=== PATIENT | female | born 1980 | race African-American/Black ===

== ENCOUNTER 2016-05-22 18:08 | Emergency (ER) | payer OTHER ==
[2016-05-22 18:30] VITALS: TEMP 98; BMI 26.6
--- NOTE | 2016-05-22 21:00 | PDOC ---
History of Present Illness - General Chief Complaint: Lightheaded Stated Complaint: LIGHTHEADED Time Seen by Provider: 05/22/16 19:12 - History of Present Illness Initial Comments: 05/22/16 20:55 CHIEF COMPLAINT: dizziness, nausea HISTORY OF PRESENT ILLNESS: 36 yo F with unknown PMH presents to ED with dizziness and nausea since this afternoon. Patient states "I am worried because last Thursday I had an episode when I felt dizzy, weak, and nauseous, and suddenly my tongue felt heavy and numb, and I couldn't speak for about 10 minutes while I was on the phone with my friend, but I took a sip of water and then I was fine. Today at work around 4:30 pm I started feeling dizzy and nauseous again so I told myself I would come to the ER after work." PAST MEDICAL HISTORY: "I don't know" FAMILY HISTORY: Denies SOCIAL HISTORY: Former smoker. Denies alcohol, illicit drug use. SURGICAL HISTORY: Denies ALLERGIES: No known drug allergies REVIEW OF SYSTEMS General/Constitutional: "Weak, dizzy." Denies fever or chills. HEENT: Denies change in vision. Denies ear pain or discharge. Denies sore throat. Cardiovascular: Denies chest pain or shortness of breath. Respiratory: Denies cough, wheezing, or hemoptysis. Gastrointestinal: Nausea. Denies vomiting, diarrhea. Genitourinary: Denies dysuria, frequency, or change in urination. Musculoskeletal: Denies joint or muscle swelling or pain. Denies neck or back pain. Skin and breasts: Denies rash or easy bruising. Neurologic: Dizziness, lightheadedness. "I feel like I'm not straight." Denies loss of consciousness, or loss of sensation. PHYSICAL EXAM General Appearance: Well-appearing, appropriately dressed. No apparent distress. HEENT: EOMI, PERRLA, normal ENT inspection, normal voice, TMs normal, pharynx normal. No conjunctival pallor. No photophobia, scleral icterus. Neck: Supple. Trachea midline. No tenderness, rigidity, carotid bruit, stridor , lymphadenopathy, or thyromegaly. Respiratory/Chest: Lungs CTAB. Cardiovascular: RRR. S1, S2. Gastrointestinal/Abdominal: Normal bowel sounds. Abdomen soft, non-distended. No tenderness or rebound tenderness. No organomegaly, pulsatile mass, guarding , hernia, hepatomegaly, splenomegaly. Musculoskeletal/Extremities: Normal inspection. FROM of all extremities, normal capillary refill. Pelvis Stable. No CVA tenderness. No tenderness to extremities, pedal edema, swelling, erythema or deformity. Integumentary: Appropriate color, dry, warm. No cyanosis, erythema, jaundice or rash Neurologic: clinic licensed practical nurse II-XII intact. Fully oriented, alert. Appropriate mood/affect. Motor strength 5/5. No appreciable EOM palsy, facial droop or sensory deficit. A&Ox3, follow commands, respond appropriately CN2-12: conjugate gaze, pupil round, equal and reactive to light. Visual field full to confrontation. EOMI without nystagmus, pursuit is smooth without saccade. Facial sensation and muscle activation intact bilaterally. Hearing intact bilaterally. Palate elevate symmetrically. Shoulder shrug and neck turn full strength. Tongue protrude midline. Motor: UE and LE strength 5/5 throughout bilaterally. Muscle tone and bulk normal. Sensory: pin prick & temp : BUE & BLE intact and equal bilaterally Vibration & propioception: intact bilaterally at 1st MCP and MTP joints. no sensory level noted on trunk Cerebellar: Rapid-alternating movement with regular rhythm without bradykinesia. Tdgfbs-[id number]-voev and rnxe-bf-[id number] intact bilaterally without dysmetria or overshoot. Gait narrow based. No shuffling. Full hip flexion and knee flexion. Negative Romberg No involuntary movement noted. No pronator drift. No clonus. 05/22/16 21:04 05/22/16 22:54 Past History - Past Medical History Allergies/Adverse Reactions: Allergies Allergy/AdvReac Type Severity Reaction Status Date / Time No Known Allergies Allergy Verified 05/22/16 19:07 Home Medications: Ambulatory Orders Nitrofurantoin Monohyd/M-Cryst [Macrobid -] 100 mg PO BID #14 capsule 05/22/16 HIV: Yes Other medical history: DENIES. - Surgical History GI Surgery: Yes (COLOSTOMY) - Psycho/Social/Smoking Cessation Hx Suicidal Ideation: No Smoking History: Current every day smoker Have you smoked in the past 12 months: No Number of Cigarettes Smoked Daily: 10 Information on smoking cessation initiated: No Substance Use Type: Alcohol, Cocaine, Heroin, Marijuana, Opiates *Physical Exam - Vital Signs Last Vital Signs Temp Pulse Resp BP Pulse Ox 98 F 77 19 124/68 100 05/22/16 18:27 05/22/16 18:27 05/22/16 18:27 05/22/16 18:27 05/22/16 18:27 ED Treatment Course - LABORATORY CBC & Chemistry Diagram: 05/22/16 20:58 05/22/16 20:58 - RADIOLOGY Radiology Studies Ordered: Category Date Time Status HEAD CT WITHOUT CONTRAST [CT] Stat CT Scan 05/22/16 20:50 Ordered Medical Decision Making - Medical Decision Making 05/22/16 22:42 36 yo F with unknown PMH presents to ED with dizziness and nausea since this afternoon. -CBC, CMP -Head CT Labs: Hg - 7.6, Hct 25.[address] negative for intracranial pathology. Patient refused blood transfusion. At this time she states that she has been told previously by her VISITOR SERVICES REPRESENTATIVE and "a clinic over at [facility]" that she has anemia sometimes due to heavy bleeding during her periods secondary to her fibroids, and was also told by VISITOR SERVICES REPRESENTATIVE MD Grimes "that I should get iron shots, but iron shots are too expensive, and I asked if I could just take iron pills to bring the levels up. But it's my fault because I haven't been taking the iron pills. I don't want to do the blood transfusion here, I'm all by myself today." Discussed with patient that she must follow up with rn gyn and hematology for further evaluation this week. Patient verbalized understanding and agrees to plan. 05/22/16 22:46 *DC/Admit/Observation/Transfer Diagnosis at time of Disposition: Lightheadedness Urinary tract infection Qualifiers: Urinary tract infection type: site unspecified Hematuria presence: without hematuria Qualified Code(s): N39.0 - Urinary tract infection, site not specified - Discharge Dispostion Disposition: HOME Condition at time of disposition: Stable Admit: No - Prescriptions Prescriptions: Nitrofurantoin Monohyd/M-Cryst [Macrobid -] 100 mg PO BID #14 capsule - Referrals Referrals: Anahi Sears MD [Staff Physician] - Chalino Carlton MD [Staff Physician] - Rosaline Lynn MD [Staff Physician] - - Patient Instructions Printed Discharge Instructions: Anemia, DI for Urinary Tract Infection (UTI) Additional Instructions: Please take antibiotic for urinary tract infection as prescribed. You must follow up with rn gyn and hematology this week for further evaluation of your anemia. Follow up with neurology regarding your inability to speak last week. If you experience any further dizziness, lightheadedness, headache, severe vaginal bleeding (more than one soaked pad an hour), fever, vomiting, diarrhea or any new or worsening symptoms, please return to the ER. - Post Discharge Activity Work/School Note: Back to Work
[2016-05-22 21:13] LABS: BASOPHIL 1.3 % (0-2.0); EOSINOPHIL 2.7 % (0-4.5); MCH 20.6 pg (25.7-33.7); MCHC 30.5 g/dl (32.0-36.0); MEAN CELL VOLUME 67.5 fl (80-96); MEAN PLT VOLUME 7.9 fl (7.5-11.1); NEUTROPHILS 49.4 % (42.8-82.8); PLATELET COUNT 239 K/MM3 (134-434); RDW 16.7 % (11.6-15.6); WHITE BLOOD COUNT 7.7 K/mm3 (4.0-10.0)
[2016-05-22 21:15] LABS: URINE APPEARANCE SLCLOUDY; URINE BILIRUBIN NEGATIVE (NEGATIVE); URINE BLOOD 3+ (NEGATIVE); URINE COLOR YELLOW; URINE GLUCOSE (UA) NEGATIVE (NEGATIVE); URINE KETONE NEGATIVE (NEGATIVE); URINE LEUK ESTERASE 1+ (NEGATIVE); URINE NITRITE POSITIVE (NEGATIVE); URINE PROTEIN NEGATIVE (NEGATIVE); URINE UROBILINOGEN NEGATIVE E.U./dl (0.2-1.0)
[2016-05-22 21:18] LABS: URINE BACTERIA MANY /hpf (NONE SEEN); URINE MUCUS RARE; URINE RBC 1 /hpf (0-3); URINE WBC 6 /hpf (3-5); YEAST MANY
[2016-05-22 21:31] LABS: HYPOCHROMIA 3+; MICROCYTOSIS 1+; OVALOCYTES FEW; PLATELET ESTIMATE ADEQUATE (NORMAL); POIKILOCYTOSIS 1+; POLYCHROMASIA 1+; TEAR DROP CELLS FEW
[2016-05-22 21:40] LABS: ALBUMIN 3.9 g/dl (3.4-5.0); ALK PHOS 72 U/L (45-117); ANION GAP 9 (8-16); BILIRUBIN,TOTAL 0.2 mg/dL (0.2-1.0); CALCIUM 8.7 mg/dL (8.5-10.1); CO2 24 mmol/L (21-32); CREATININE 0.8 mg/dL (0.55-1.02); GLUCOSE,RANDOM 77 mg/dL (74-106); SGOT/AST 12 U/L (15-37); SGPT/ALT 20 U/L (12-78)
--- NOTE | 2016-05-22 21:49 | PDOC ---
[id number]/68 100 05/22/16 18:27 05/22/16 18:27 05/22/16 18:27 05/22/16 18:27 05/22/16 18:27 ED Treatment Course - LABORATORY CBC & Chemistry Diagram: 05/22/16 20:58 05/22/16 20:58 - ADDITIONAL ORDERS Additional order review: Laboratory Results 05/22/16 05/22/16 05/22/16 21:00 21:00 20:58 Sodium 142 Potassium 3.8 Chloride 109 H Carbon Dioxide 24 Anion Gap 9 BUN 13 Creatinine 0.8 Creat Clearance w eGFR > 60 Random Glucose 77 Calcium 8.7 Total Bilirubin 0.2 AST 12 L ALT 20 Alkaline Phosphatase 72 Total Protein 7.0 Albumin 3.9 Urine Color Yellow Urine Appearance Slcloudy Urine pH 6.0 Ur Specific [place]ey 1.024 Urine Protein Negative Urine Glucose (UA) Negative Urine Ketones Negative Urine Blood 3+ H Urine Nitrite Positive Urine Bilirubin Negative Urine Urobilinogen Negative Ur Leukocyte Esterase 1+ H Urine RBC 1 Urine WBC 6 Ur Epithelial Cells Moderate Urine Bacteria Many Urine Mucus Rare Urine Yeast Many Urine HCG, Qual Negative 05/22/16 20:58 RBC 3.72 MCV 67.5 L MCHC 30.5 L RDW 16.7 H MPV 7.9 Neutrophils % 49.4 Lymphocytes % 38.7 Monocytes % 7.9 Eosinophils % 2.7 Basophils % 1.3 Medical Decision Making - Medical Decision Making 05/22/16 21:49 agree with care from BUILDINGS AND GROUNDS SUPERVISOR Brenda *DC/Admit/Observation/Transfer Diagnosis at time of Disposition: Lightheadedness, Urinary tract infection - Discharge Dispostion Disposition: HOME Condition at time of disposition: Stable - Prescriptions Prescriptions: Nitrofurantoin Monohyd/M-Cryst [Macrobid -] 100 mg PO BID #14 capsule - Referrals Referrals: Chalino Carlton MD [Staff Physician] - Anahi Sears MD [Staff Physician] - Rosaline Lynn MD [Staff Physician] - - Patient Instructions Printed Discharge Instructions: Anemia, DI for Urinary Tract Infection (UTI) Additional Instructions: Please take antibiotic for urinary tract infection as prescribed. You must follow up with chief of production and hematology this week for further evaluation of your anemia. Follow up with neurology regarding your inability to speak last week. If you experience any further dizziness, lightheadedness, headache, severe vaginal bleeding (more than one soaked pad an hour), fever, vomiting, diarrhea or any new or worsening symptoms, please return to the ER. - Post Discharge Activity Work/School Note: Back to Work
[2016-05-22 23:00] VITALS: BP 118/64; PULSE 81
== END 2016-05-22 22:59 | disposition home or self-care (01) ==
LOC: JER 18:08
DX: N39.0 Urinary tract infection, site not specified (principal); D64.9 Anemia, unspecified; Z21 Asymptomatic human immunodeficiency virus [HIV] infection status; F17.210 Nicotine dependence, cigarettes, uncomplicated
CPT/HCPCS: 36415; 70450-TC; 80053; 81003; 81015; 84703; 85025; 99283-25

== ENCOUNTER 2016-09-10 09:05 | Emergency (ER) | payer OTHER ==
[2016-09-10 09:15] VITALS: BP 128/68; TEMP 98.3; BMI 32.3
--- NOTE | 2016-09-10 10:12 | PDOC ---
History of Present Illness - General Chief Complaint: Sore Throat Stated Complaint: Sore Throat Time Seen by Provider: 09/10/16 09:34 History Source: Patient Exam Limitations: No Limitations - History of Present Illness Initial Comments: 09/10/16 10:08 c/o sore throat for 4 days and post nasal drip no fever also dry cough Severity: mild Associated Symptoms: reports: cough (dry) Past History - Past Medical History Allergies/Adverse Reactions: Allergies Allergy/AdvReac Type Severity Reaction Status Date / Time No Known Allergies Allergy Verified 09/10/16 09:09 Home Medications: Ambulatory Orders NK [No Known Home Medication] 09/10/16 HIV: No Other medical history: UTERINE FIBROIDS - Surgical History Abdominal Surgery: No GI Surgery: No - Psycho/Social/Smoking Cessation Hx Anxiety: No Suicidal Ideation: No Smoking History: Former smoker Have you smoked in the past 12 months: Yes Number of Cigarettes Smoked Daily: 10 If you are a former smoker, when did you quit?: 7 MO Information on smoking cessation initiated: No Hx Alcohol Use: No Drug/Substance Use Hx: No Substance Use Type: None Review of Systems - Review of Systems Able to Perform ROS?: Yes Is the patient limited Fijian proficient: No Constitutional: No: Symptoms Reported HEENTM: Yes: See HPI Respiratory: Yes: See HPI *Physical Exam - Vital Signs Last Vital Signs Temp Pulse Resp BP Pulse Ox 98.3 F 20 128/68 100 09/10/16 09:07 09/10/16 09:07 09/10/16 09:07 09/10/16 09:07 - Physical Exam General Appearance: Yes: Nourished, Appropriately Dressed HEENT: positive: EOMI, ANGUS, Pharynx Normal, Other (post nasal drip ). negative : Nasal Congestion, Rhinorrhea Neck: positive: Supple. negative: Lymphadenopathy (R), Lymphadenopathy (L) Respiratory/Chest: positive: Lungs Clear, Normal Breath Sounds. negative: Chest Tender, Crackles, Rhonchi, Stridor, Wheezing Cardiovascular: positive: Regular Rhythm, Regular Rate Gastrointestinal/Abdominal: positive: Normal Bowel Sounds, Soft Musculoskeletal: positive: Normal Inspection Extremity: positive: Normal Capillary Refill, Normal Inspection Integumentary: positive: Normal Color, Dry, Warm ED Treatment Course - ADDITIONAL ORDERS Additional order review: 09/10/16 09:30 Group A Strep Rapid Antigen - Final Throat Medical Decision Making - Medical Decision Making 09/10/16 10:09 cc: post nasal drip sore throat will check for strep pt non toxic well appearing *DC/Admit/Observation/Transfer Diagnosis at time of Disposition: Post-nasal drip, Sore throat (viral) - Discharge Dispostion Disposition: HOME Condition at time of disposition: Good - Patient Instructions Additional Instructions: gargle with warm salt water 4-5 times a day any honey and lemon lozengers, throat spray can be helpful the rapid strep is negative for strep throat continue to take an allergy medication with a decongestant such as Alka D or Claritn D this can dry up secretions and mucous in the throat follow with an ENT and home health billing specialist call your [facility] number to find one that takes your plan
== END 2016-09-10 10:20 | disposition home or self-care (01) ==
LOC: JERFT 09:05
DX: J02.9 Acute pharyngitis, unspecified (principal); B97.89 Other viral agents as the cause of diseases classified elsewhere; R09.82 Postnasal drip; Z87.891 Personal history of nicotine dependence
CPT/HCPCS: 87070; 87430; 99281-25

== ENCOUNTER 2022-07-08 15:04 | Emergency (ER) | payer OTHER ==
[2022-07-08 15:20] VITALS: RESP 18; BMI 29.9
[2022-07-08] MEDS ORDERED: KETOROLAC TROMETHAMINE 30 MG/1 ML VIAL IM ONE (15:51)
[2022-07-08] MEDS ORDERED: diazePAM 5 MG TABLET PO ONE (15:51)
[2022-07-08] MEDS ORDERED: ACETAMINOPHEN 500 MG TABLET (FP) PO ONE (15:51)
[2022-07-08] MEDS ORDERED: KETOROLAC TROMETHAMINE 30 MG/1 ML VIAL ONE (15:59)
[2022-07-08] MEDS ORDERED: diazePAM 5 MG TABLET ONE (15:59)
[2022-07-08] MEDS ORDERED: ACETAMINOPHEN 500 MG TABLET (FP) ONE (16:03)
[2022-07-08 18:32] LABS: EPI CELLS 24 /uL (0-25.1); HCG,QUALITATIVE URINE Negative; HYALINE CASTS 0 /uL (0-3.1); URINE APPEARANCE CLEAR; URINE BACTERIA 2986 /uL (0-1359); URINE BILIRUBIN NEGATIVE (NEGATIVE); URINE COLOR YELLOW; URINE GLUCOSE (UA) NEGATIVE (NEGATIVE); URINE KETONE NEGATIVE (NEGATIVE); URINE LEUK ESTERASE 1+ (NEGATIVE); URINE NITRITE POSITIVE (NEGATIVE); URINE PROTEIN NEGATIVE (NEGATIVE); URINE RBC 174 /uL (0-23.9); URINE UROBILINOGEN 0.2 mg/dL (0.2-1.0); URINE WBC 31 /uL (0-25.8)
[2022-07-08] MEDS ORDERED: CEPHALEXIN MONOHYDRATE 500 MG CAPSULE (UD) PO ONE (19:46)
[2022-07-08] MEDS ORDERED: predniSONE 20 MG TABLET (UD) PO ONE (20:12)
[2022-07-08] MEDS ORDERED: CEPHALEXIN MONOHYDRATE 500 MG CAPSULE (UD) ONE (20:19)
[2022-07-08] MEDS ORDERED: predniSONE 20 MG TABLET (UD) ONE (20:19)
[2022-07-08 20:27] VITALS: BP 114/61; PULSE 70; TEMP 98.1
== END 2022-07-08 20:47 | disposition home or self-care (01) ==
LOC: JER 15:04
PROC: 3E0233Z Introduction of Anti-inflammatory into Muscle, Percutaneous Approach (ICD-10-PCS; principal; 2022-07-08)
DX: M51.27 Other intervertebral disc displacement, lumbosacral region (principal); M54.50 Low back pain, unspecified; R20.2 Paresthesia of skin; R53.1 Weakness; M79.604 Pain in right leg; M79.605 Pain in left leg
CPT/HCPCS: 72131-TC; 81003; 84703; 87077; 87086; 99284-25